=== PATIENT | female | born 1965 | race Caucasian/White ===

== ENCOUNTER 2019-11-27 15:28 | Observation (INO) | payer OTHER ==
[~2019-11-27] VITALS: Ht 160 cm; Wt 81.6 kg
[2019-11-27] MEDS ORDERED: SODIUM CHLORIDE 0.9% 1000ML 1,000 ML IV STA (15:46)
[2019-11-27] MEDS ORDERED: KETOROLAC TROMETHAMINE 30 MG/ML VIAL IV STA (15:46)
[2019-11-27] MEDS ORDERED: MECLIZINE HCL 12.5 MG TAB PO ONE (16:00)
[2019-11-27] MEDS ORDERED: DIPHENHYDRAMINE HCL INJ 50 MG/ML VIAL IV NR (16:00)
[2019-11-27] MEDS ORDERED: KETOROLAC TROMETHAMINE 30 MG/ML VIAL ONE (16:04)
[2019-11-27] MEDS ORDERED: MECLIZINE HCL 12.5 MG TAB ONE (16:04)
[2019-11-27] MEDS ORDERED: DIPHENHYDRAMINE HCL INJ 50 MG/ML VIAL ONE (16:04)
--- NOTE | 2019-11-27 18:02 | Emergency Department Note ---
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 Dizziness described as the world spinning, occurs with minor head movements Historian: Patient Arrival Mode: Car Track Repairer Required: No Onset (how long ago): day(s) (5) Location: head Quality: pain Radiation: Reports non-radiation Severity: moderate Onset quality: gradual Timing of current episode: intermittent Progression: waxing and waning Chronicity: new Context: Denies recent illness Relieving factors: none Exacerbating factors: none Associated symptoms: Reports denies other symptoms Treatments prior to arrival: none (MASON LAW MD) Past Medical/Family History Physician Review I have reviewed the patient's past medical and family history. Any updates have been documented here. (MASON LAW MD) Past Medical History Recent Fever: No Clinical Suspicion of Infectio: No New/Unexplained Change in Ment: No Past Medical History: Asthma, Migraines Other Medical History: SINUS BRONCHITIS Past Surgical History: Hysterectomy (MASON LAW MD) Social History Smoking Cessation: Never Smoker Counseling Performed: No Alcohol Use: Social Any Illegal Drug Use: No TB Exposure/Symptoms: No Physically hurt or threatened: No (MASON LAW MD) Review of Systems Review of Systems Constitutional: Reports no symptoms EENTM: Reports no symptoms Cardiovascular: Reports no symptoms Respiratory: Reports no symptoms Gastrointestinal: Reports no symptoms Genitourinary: Reports no symptoms Musculoskeletal: Reports no symptoms Integumentary: Reports no symptoms Neurological: Reports as per HPI Psychological: Reports no symptoms Endocrine: Reports no symptoms Hematological/Lymphatic: Reports no symptoms (MASON LAW MD) Physical Exam Related Data Allergies: Uncoded Allergies: ALL NARCOTICS (Adverse Reaction, Unknown, NAUSEA/VOMITING, 11/27/19) Triage Vital Signs Vital Signs Date Time Temp Pulse Resp B/P (MAP) Pulse Ox O2 Delivery O2 Flow Rate FiO2 11/27/19 15:33 97.5 117 18 139/96 100 Room Air Vital signs reviewed: Yes (MASON LAW MD) Physical Exam CONSTITUTIONAL Constitutional: Present well-developed, Present well-nourished HENT HENT: Present normocephalic, Present atraumatic, Present oropharynx clear/moist, Present nose normal HENT L/R: Present left TM normal, Present right TM normal, Present left canal normal, Present right canal normal, Present left ext ear normal, Present right ext ear normal EYES Eyes: Reports PERRL, Reports conjunctivae normal NECK Neck: Present ROM normal PULMONARY Pulmonary: Present effort normal, Present breath sounds normal CARDIOVASCULAR Cardiovascular: Present regular rhythm, Present heart sounds normal, Present capillary refill normal, Present normal rate GASTROINTESTINAL Abdominal: Present soft, Present nontender, Present bowel sounds normal GENITOURINARY Genitourinary: Present exam deferred SKIN Skin: Present warm, Present dry MUSCULOSKELETAL Musculoskeletal: Present ROM normal NEUROLOGICAL Neurological: Present alert, Present oriented x 3, Present no gross motor or sensory deficits PSYCHOLOGICAL Psychological: Present mood/affect normal, Present judgement normal (MASON LAW MD) Results Laboratory Lab results reviewed: Yes (GREY WORTHY DO) Imaging Imaging results reviewed: Yes (MASON LAW MD) Imaging results reviewed: Yes (GREY WORTHY DO) Assessment & Plan Medical Decision Making MDM check CT brain r/o cerebral bleed/cva (MASON LAW MD) MDM 54-year-old female arrived to the ED with complaints of a headache, CT findings concerning for demyelinating versus subcortical infarct. Case discussed with Dr. Mejia from neurology who accepted consultation. Patient except the general medical floor, although vasculitis labwork ordered at Dr. lujan recommendation. Patient stable with no neuro deficits at time of admission. (GREY WORTHY DO) Reassessment Reassessment REPORT TO DR WORTHY TO F/U CT BRAIN (MASON LAW MD) Assessment & Plan Final Impression: (1) Vertigo (2) Headache (3) CVA (cerebral vascular accident) (MASON LAW MD) Final Impression: (1) Headache (2) Vertigo (3) CVA (cerebral vascular accident) (4) Subcortical infarction (GREY WORTHY DO) Depart Disposition: ADMITTED Last Vital Signs Date Time Temp Pulse Resp B/P (MAP) Pulse Ox O2 Delivery O2 Flow Rate FiO2 11/27/19 15:33 97.5 117 18 139/96 100 Room Air (MASON LAW MD) Medications in the ED Ketorolac Tromethamine 30 mg ONCE STAT IV Last administered on 11/27/19at 16:03; Admin Dose 30 MG; Start 11/27/19 at 15:46; Stop 11/27/19 at 15:58; Status DC Sodium Chloride 1,000 ml @ 0 mls/hr Q0M STAT IV Last administered on 11/27/19at 16:03; Admin Dose 999 MLS/HR; Start 11/27/19 at 15:46; Stop 11/27/19 at 15:47; Status DC Diphenhydramine HCl 25 mg NOW IV Last administered on 11/27/19at 16:03; Admin Dose 25 MG; Start 11/27/19 at 16:00; Stop 11/27/19 at 16:59; Status DC Meclizine HCl 25 mg ONCE ONCE PO Last administered on 11/27/19at 16:03; Admin Dose 25 MG; Start 11/27/19 at 16:00; Stop 11/27/19 at 16:01; Status DC Meclizine HCl 12.5 mg STK-MED ONCE .ROUTE ; Start 11/27/19 at 16:04; Stop 11/27/19 at 15:59; Status DC Ketorolac Tromethamine 30 mg STK-MED ONCE .ROUTE ; Start 11/27/19 at 16:04; Stop 11/27/19 at 15:59; Status DC Diphenhydramine HCl 50 mg STK-MED ONCE .ROUTE ; Start 11/27/19 at 16:04; Stop 11/27/19 at 15:59; Status DC (MASON LAW MD) MASON LAW MD Nov 27, 2019 18:02 GREY WORTHY DO Nov 27, 2019 21:20
--- NOTE | 2019-11-27 18:28 | Diagnostic Imaging Report ---
Examination: CT BRAIN WO CONTRAST History:Dizziness; headaches. Comparison studies:None Technique: Axial images were obtained from the skull base to the vertex. Coronal and sagittal images reconstructed from the axial data. Dose modulation, iterative reconstruction, and/or weight based adjustment of the mA/kV was utilized to reduce the radiation dose to as low as reasonably achievable. Intravenous contrast: None Findings: Scalp: No abnormalities. Bones: No fractures, blastic or lytic lesions. Brain sulci: Appropriate for age. Ventricles: Normal in size and configuration. No hydrocephalus. Extra-axial space: No abnormalities. Parenchyma: Subcortical vague hypoattenuation of the left superior frontal gyrus, nonspecific. No masses, hemorrhage, or acute or chronic cortical based vascular insults.. Sellar/suprasellar region: No abnormalities. Craniocervical junction: Patent foramen magnum. No Chiari one malformation. Incidental findings: None. Impression: Vague hypoattenuation in the left superior frontal gyrus, which could be from many etiology including acute subcortical infarct, demyelinating disease or chronic microvascular ischemic change. Further evaluation with contrast enhanced brain MRI is recommended. No acute intracranial hemorrhage or acute cortical infarct. Signed by: Dr. Keira Chi M.D. on 11/27/2019 6:25 PM
[2019-11-27 21:50] LABS: BASOPHILS # (AUTO) 0.1 (0.0-0.1); BASOPHILS % 0.7 % (0.0-1.0); EOSINOPHILS # (AUTO) 0.2 (0.0-0.4); HEMATOCRIT 43.8 % (34.2-44.1); HEMOGLOBIN 14.2 g/dL (12.0-16.0); LYMPHOCYTES # (AUTO) 2.7 (1.0-3.2); LYMPHOCYTES % 32.5 % (18.0-39.1); MEAN CORPUSCULAR HEMOGLOBIN 28.2 pg (28-32); MEAN CORPUSCULAR HGB CONC 32.4 g/dL (31-35); MEAN CORPUSCULAR VOLUME 87.1 fL (81-99); MONOCYTES # (AUTO) 0.4 (0.2-0.8); MONOCYTES % 5.4 % (4.4-11.3); NEUTROPHILS # (AUTO) 4.8 (2.1-6.9); PLATELET COUNT 245 x10e3/uL (140-360); RED BLOOD COUNT 5.03 x10e6/uL (3.6-5.1); RED CELL DISTRIBUTION WIDTH 13.3 % (11.7-14.4)
[2019-11-27 22:09] LABS: CALCIUM 9.8 mg/dL (8.4-10.2); CHLORIDE 108 mmol/L (98-107); POTASSIUM 3.8 mmol/L (3.5-5.1); SODIUM 137 mmol/L (136-145)
[2019-11-27 22:26] VITALS: BP 112/60
[2019-11-27 22:41] LABS: ALANINE AMINOTRANSFERASE 36 IU/L (0-55); ALBUMIN 4.1 g/dL (3.5-5.0); ALBUMIN/GLOBULIN RATIO 1.4 (0.8-2.0); ALKALINE PHOSPHATASE 135 IU/L (40-150); BLOOD UREA NITROGEN 12 mg/dL (7-26); BUN/CREATININE RATIO 12 (6-25); CARBON DIOXIDE 20 mmol/L (22-29); CREATINE KINASE 59 IU/L (29-168); EST GLOMERULAR FILTRATION RATE 58 ML/MIN (60-); GLUCOSE 94 mg/dL (74-118)
[2019-11-27 22:42] LABS: ANION GAP 12.8 mmol/L (8-16)
[2019-11-27 23:00] VITALS: BP 148/84
[2019-11-28] VITALS (7 sets, daily range): BP systolic 111–115; BP diastolic 54–73
[2019-11-28 06:46] LABS: BASOPHILS % 0.6 % (0.0-1.0); EOSINOPHILS # (AUTO) 0.2 (0.0-0.4); EOSINOPHILS % 3.2 % (0.0-6.0); HEMATOCRIT 42.2 % (34.2-44.1); HEMOGLOBIN 13.8 g/dL (12.0-16.0); LYMPHOCYTES # (AUTO) 2.1 (1.0-3.2); LYMPHOCYTES % 30.9 % (18.0-39.1); MEAN CORPUSCULAR HEMOGLOBIN 29.4 pg (28-32); MEAN CORPUSCULAR HGB CONC 32.7 g/dL (31-35); MEAN CORPUSCULAR VOLUME 89.8 fL (81-99); MONOCYTES # (AUTO) 0.6 (0.2-0.8); MONOCYTES % 8.4 % (4.4-11.3); NEUTROPHILS # (AUTO) 3.8 (2.1-6.9); NEUTROPHILS % 56.6 % (38.7-80.0); PLATELET COUNT 193 x10e3/uL (140-360); RED CELL DISTRIBUTION WIDTH 13.5 % (11.7-14.4)
[2019-11-28 07:24] LABS: ALANINE AMINOTRANSFERASE 33 IU/L (0-55); ALBUMIN 3.9 g/dL (3.5-5.0); ALBUMIN/GLOBULIN RATIO 1.4 (0.8-2.0); ALKALINE PHOSPHATASE 130 IU/L (40-150); ANION GAP 12.2 mmol/L (8-16); BLOOD UREA NITROGEN 11 mg/dL (7-26); BUN/CREATININE RATIO 12 (6-25); CALCIUM 9.6 mg/dL (8.4-10.2); CARBON DIOXIDE 24 mmol/L (22-29); CHLORIDE 109 mmol/L (98-107); EST GLOMERULAR FILTRATION RATE > 60 ML/MIN (60-); GLUCOSE 91 mg/dL (74-118); POTASSIUM 4.2 mmol/L (3.5-5.1); SODIUM 141 mmol/L (136-145)
[2019-11-28] MEDS ORDERED: GADOBENATE DIMEGLUMINE 1 ML IV ONE (10:36)
[2019-11-28] MEDS ORDERED: METHYLPREDNISOLONE SOD SUCC 125 MG/2ML VIAL IV SCH (11:30)
--- NOTE | 2019-11-28 12:17 | Diagnostic Imaging Report ---
History: Headache,? Infarct. Comparison studies: Head CT 11/27/2019. Technique: Sagittal and axial T2, axial DWI, T2*GRE, axial precontrast T1 and axial T2 FLAIR. Postcontrast sagittal, axial coronal T1 FS. Intravenous contrast: 17 cc of MultiHance. Findings: Scalp: No abnormal signal. No masses. Bone marrow: Normal in signal intensity. Brain sulci: Appropriate for age. Ventricles: Normal in size . No hydrocephalus. Parenchyma: Focal 10 mm T2 hyperintensity in the left superior frontal subcortical white matter is nonspecific and may reflect gliosis secondary to chronic microvascular ischemic changes or other nonspecific insult. No mass, hemorrhage, abnormal restricted diffusion or enhancing abnormality. Incidental prominent perivascular spaces throughout the cerebral white matter are present, are nonspecific and are of indeterminate clinical significance. Suprasellar region: No abnormalities. Craniocervical junction: Patent foramen magnum. No Chiari one malformation. Vessels: Normal flow-voids in the arteries and sinuses. IMPRESSION: 1. No acute infarct or other acute intracranial abnormalities. 2. Nonspecific left superior frontal subcortical insult which correlates with the abnormality described on the recent head CT of 11/27/2019. Signed by: Dr. Spencer Camilo M.D. on 11/28/2019 12:13 PM
[2019-11-28] MEDS ORDERED: MECLIZINE HCL 12.5 MG TAB PO PRN (13:00)
[2019-11-28] MEDS ORDERED: MELATONIN 5 MG TABLET PO PRN (13:00)
[2019-11-28] MEDS ORDERED: ONDANSETRON HCL INJ 2MG/ML 2ML 2 MG/ML VIAL IV PRN (13:00)
[2019-11-28] MEDS ORDERED: KETOROLAC TROMETHAMINE 30 MG/ML VIAL IV PRN (13:00)
[2019-11-28] MEDS ORDERED: ACETAMINOPHEN 325 MG TAB PO PRN (13:00)
--- NOTE | 2019-11-28 14:23 | Consultation ---
DATE OF CONSULTATION: Neurology Consultation. HISTORY OF PRESENT ILLNESS: Ms. Ponce started having symptoms on November 04. She woke up suddenly dizzy and vertiginous that lasted a few minutes and then resolved and then it happened pretty much nocturnally until November 21 where she was persistently and constantly dizzy without complete resolution. She feels she has to move slowly because otherwise she gets more discombobulated, but physically disoriented in space rather than confusion. She does report that she has some memory issues, may be; although, she is not entirely clear about that. She really has not affected her work thus far, but the symptoms has been getting worse where she has been increasingly concerned about it. She comes in to emergency for further evaluation. The CT scan of the brain showed nothing entirely clear; however, of the left superior frontal gyri, but it was not entirely clear to see, an MRI with contrast was recommended and that is pending. She denies tobacco or drugs. She occasionally drinks alcohol, but not substantially. No head traumas. No exposures to anything as per her reports. REVIEW OF SYSTEMS: She does report dizziness. Feels congestion, but otherwise 14-point review of systems is negative. No sensory changes or abnormalities. No seizures. Denies migraines. Denies extraocular muscle abnormalities, visual disturbances, auditory disturbances or hallucinations. Denies chest pain, nausea, vomiting, ataxia, clumsiness. She denies easy bruising or easy bleeding. Denies discharges . Denies diarrhea or constipation. A 14-point review of systems otherwise negative. PHYSICAL EXAMINATION: GENERAL: VITAL SIGNS: Temperature of 97.8, pulse of 92, blood pressure 111/54. Medically, she is a pretty healthy. She does not take any medications for anything. She does not tolerate narcotics. She has been taking diphenhydramine and meclizine for the dizziness and the symptoms that she felt most potentially allergic. GENERAL: Awake, alert, oriented x3 female. Extraocular muscles intact. Face symmetric. Tongue is midline. Speech is clear. There is no nuchal rigidity. CARDIOVASCULAR: Regular rate and rhythm without bruits. PULMONARY: Clear to auscultation. ABDOMEN: Soft, nontender with no distention. NEURO: Speech is clear. She has no aphasia. She is responsive. Her strength is 5/5 and reflexes 2/4. She is little bit slow, bradykinetic, but no ataxia noted. No dysmetria is noted. No dysdiadochokinesia is noted. CHEST: Grossly intact. EXTREMITIES: Toes downgoing to plantar stimulation. ASSESSMENT AND PLAN: The patient comes in with dizziness that seems to be worsening the frontal gyrus abnormality, which is questionable on CT scan, but does require MRI to evaluate. Lab work has been sent out to evaluate for vasculitis. Evaluation for stroke in progress and then EEG will be done. NATALI MARQUEZ MD RR/MODL /[id number]
[2019-11-28] MEDS ORDERED: SCOPOLAMINE 1.5 MG PATCH TOP SCH (15:00)
--- NOTE | 2019-11-28 19:30 | History and Physical ---
CHIEF COMPLAINT: Vertigo, dizziness. HISTORY OF PRESENT ILLNESS: A 54-year-old female, came into the ED with complaints of underlying dizziness, ongoing for the last several weeks. The patient reports that she noticed it back in November 04, when she woke up and suddenly became very dizzy. Since that time, she had episodically which she will have dizziness at rest and dizziness upon movement. Then, she noticed since November 21, she had continuous dizziness with movement. The patient denies any cough, congestion, or any fever. The patient went to the [facility] yesterday, told to come to the ER for further evaluation and management. The patient was seen and evaluated at bedside on the medical floor, currently doing well with no other issues at this time. Vital signs are stable to my evaluation. She denies any chest pain. Does report having a history of sinusitis and allergies, which could be playing a role to her underlying dizziness. REVIEW OF SYSTEMS: Pertinent positive: Dizziness, vertigo. The rest of 14-point review of systems are reviewed with the patient and are negative. ALLERGIES: SHE IS ALLERGIC TO NARCOTICS. HOME MEDICATIONS: None. PAST MEDICAL HISTORY: Reviewed. PAST SURGICAL HISTORY: None. FAMILY HISTORY: Hypertension, diabetes. SOCIAL HISTORY: No drugs, no alcohol. Does not smoke. Good social support. PHYSICAL EXAMINATION: VITAL SIGNS: Temperature is 97.0, pulse 60, respiratory rate is 20, blood pressure is 112/58, and pulse ox 97% on room air. GENERAL: Not in acute distress. Alert and oriented x3. Cooperative on examination. HEENT: Head is normocephalic, atraumatic. Eyes; pupils are equal and reactive to light bilaterally. PULMONARY: Clear to auscultation bilaterally. No wheezing, rales, or rhonchi. No crackles appreciated. CARDIOVASCULAR: Positive S1, S2. No murmurs, rubs, or gallops. ABDOMEN: Soft, nondistended, nontender to palpation. Bowel sounds present. MUSCULOSKELETAL: Strength is 5/5 throughout. No evidence of any muscle deficits on examination. No weakness appreciated. NEUROLOGIC: Cranial nerves II through XII are grossly intact. No evidence of any neurological deficits on exam. SKIN: Intact. Warm to touch. Good cap refill. PSYCHIATRIC: Normal affect and mood. EXTREMITIES: No edema. Good range of motion throughout. LABORATORY DATA: White count 6, hemoglobin 13, hematocrit is 42, and platelets of 193. Coagulation results pending. Chemistry; sodium 141, potassium 4.2, chloride 109, bicarb 24, anion gap of 12, BUN 11, creatinine 0.9, glucose 91, calcium 9.6. LFTs were normal. Troponins are negative. CK 59. Albumin 3.9. Immunology, serologies are pending. Coronavirus is pending. IMAGING STUDIES: CT brain, vague hypoattenuation in the left superior frontal gyrus which could be from many etiologies including acute cortical infarct, demyelinating disease, or chronic microvascular ischemic changes. No acute intracranial hemorrhage or acute cortical insult. MRI of the brain with and without contrast shows no acute infarct or other acute intracranial abnormalities. Nonspecific left superior frontal subcortical insult with results, which correlates with abnormalities described on recent CT brain. IMPRESSION: 1. Benign positional peripheral vertigo. 2. Dizziness with associated nausea. PLAN: At this time, CT brain found to be nothing acute was found. 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 We will put scopolamine patch, meclizine p.r.n. Restart home medications. Lovenox for DVT prophylaxis. Steroids have been given already per Neurology. Follow Neurology recommendations. If all her imaging come back to be negative, the patient will likely need an inner ear workup by ENT as an outpatient. Otherwise, we will continue same plan of care and monitor very closely. I will go ahead and get a carotid ultrasound as well as a 2D echo to complete our workup as well. I discussed the plan of care with the patient and nursing staff. MD DIAN Mitchell/MODL /[id number]
--- NOTE | 2019-11-28 23:00 | NUR ---
patient arrived from ER, offered a bed and fall precaution maintained Addendum: 11/29/19 at 0737 by Chuck Almonte RN wrong entry
[2019-11-29] VITALS: BP 108/59
[2019-11-29 04:00] VITALS: BP 94/61
[2019-11-29 05:56] LABS: BASOPHILS % 0.1 % (0.0-1.0); HEMATOCRIT 42.3 % (34.2-44.1); HEMOGLOBIN 13.7 g/dL (12.0-16.0); LYMPHOCYTES # (AUTO) 1.1 (1.0-3.2); LYMPHOCYTES % 9.8 % (18.0-39.1); MEAN CORPUSCULAR HEMOGLOBIN 28.2 pg (28-32); MEAN CORPUSCULAR HGB CONC 32.4 g/dL (31-35); MONOCYTES # (AUTO) 0.3 (0.2-0.8); MONOCYTES % 2.9 % (4.4-11.3); NEUTROPHILS # (AUTO) 9.6 (2.1-6.9); NEUTROPHILS % 86.7 % (38.7-80.0); PLATELET COUNT 254 x10e3/uL (140-360); RED BLOOD COUNT 4.86 x10e6/uL (3.6-5.1)
[2019-11-29 06:19] LABS: ANION GAP 13.8 mmol/L (8-16); BLOOD UREA NITROGEN 15 mg/dL (7-26); BUN/CREATININE RATIO 19 (6-25); CALCIUM 9.7 mg/dL (8.4-10.2); CARBON DIOXIDE 23 mmol/L (22-29); CHLORIDE 109 mmol/L (98-107); CREATININE, SERUM 0.78 mg/dL (0.57-1.11); EST GLOMERULAR FILTRATION RATE > 60 ML/MIN (60-); GLUCOSE 128 mg/dL (74-118); POTASSIUM 4.8 mmol/L (3.5-5.1); SODIUM 141 mmol/L (136-145)
--- NOTE | 2019-11-29 07:32 | NUR ---
patient endorsed to next shift for continuity of care.
[2019-11-29 07:56] VITALS: BP 94/61
[2019-11-29 08:00] VITALS: BP 121/68
--- NOTE | 2019-11-29 09:26 | NUR ---
still mildy dizzy 97.7 101 105/59 cta tachycardic no nuchal rigidity no rashes or lesions on skin aox3, speech coherent and fluent no scanning or stutter eomi perrl no ptosis face symmetric gait is more confident but still mildy bradykinetic strength 5/5 reflexes 1/4 toes downgoing no ataxia or tremor a/p perivepheral vertigo on meclazine- outpt ent follow up [employer] lesion - no disruption of BBB, no enhacnement on ADC or B1000 no evidence of acute injury, no space occupying qualities. no evidence of vasculitis, encephalitis, meningitis, tumor, or stroke.possibly old [employer] contusion vs congenital finding? repeat scan in 1 year or if symptoms change, monitor clinically, can dc steroids and outpt follow up in vasculitic labs, however no evidence ofCNS vasculitis, it is likely an incidnetal finding of chornic nature discused w/ pt and showed her imaging explained all findings. ok to dc
[2019-11-29 12:00] VITALS: BP 103/54
--- NOTE | 2019-11-29 14:45 | NUR ---
Discharge instructions and prescription were given to the patient. She verbalized understanding. IV to the left ac was removed with tip intact.
--- NOTE | 2019-11-29 21:16 | Discharge Summary ---
FINAL DISCHARGE DIAGNOSES: 1. Benign peripheral positional vertigo. 2. Nausea secondary to benign peripheral positional vertigo-resolved. CONSULTANTS: Neurology. VITAL SIGNS: Temperature is 98.1, pulse 78, respiratory rate is 20, blood pressure 121/68, pulse ox 98% on room air. LABORATORY FINDINGS: Show white count 11, hemoglobin is 13, hematocrit is 42, and platelets of 254. Coagulation and several serologies are pending. Chemistry; sodium 141, potassium 4.8, chloride 109, bicarb 27, anion gap of 13, BUN is 15, creatinine is 0.78, glucose is 128, A1c 5.3, calcium is 9.7. Troponins were negative. Albumin 3.9. TSH is 4.69. Coronavirus is pending. IMAGING STUDIES: CT of the brain shows us a vague hypoattenuation in the left superior frontal gyrus, which could be from many etiologies. MRI of the brain, no acute infarct or other acute intracranial abnormality. Nonspecific left superior frontal subcortical insult, which correlates with the abnormality described in the recent head CT on 11/27/2019. A 2D echo shows an EF of 55% to 60%. Carotid ultrasound shows no evidence of any stenosis bilaterally. HOSPITAL COURSE: A 54-year-old female, who came into the ED with complaints of underlying dizziness, ongoing for several days prior to arrival to the hospital. The patient was admitted and Neurology was consulted. MRI of the brain, CT of the brain with results above showed no acute findings. A 2D echo was found to be normal. Carotid ultrasound was found to be normal. The patient was given steroids for her underlying dizziness. She was given meclizine as well as scopolamine. The patient improved throughout the hospital course. Her dizziness resolved. Neurology reviewed the imaging studies with the patient and advised her to come back in his office in 2 to 3 weeks' time. There is also several serologies that are still pending and that she must follow up with the neurologist as an outpatient to get the final results. They are still pending at this time and the patient verbalized understanding. On the day of discharge, vital signs were stable, labs reviewed and stable. The patient is seen and evaluated and examined thoroughly on the day of discharge with no other complaints. The patient verbalized understanding and agrees to plan of care to follow up accordingly as an outpatient with primary care physician in 1 week and the neurologist in 2 to 3 weeks' time. MEDICATIONS: See med reconciliation form. DISPOSITION: Home. CONDITION: Stable. DIET: Heart healthy. In the event of any worsening symptoms, the patient was advised to come back to the ED for further evaluation. Discharge summary took greater than 35 minutes. MD DIAN Mitchell/GREG /[id number]
--- NOTE | 2019-11-30 13:28 | Electroencephalogram ---
DATE OF STUDY: REQUESTING PHYSICIAN: PROCEDURE: 30 minutes EEG. INDICATIONS FOR THE PROCEDURE: EEG is being done to evaluate for seizure activity. EEG DATA: Posterior dominant rhythm is 10 hertz . This is a 10-20 international electrode placement system. EEG INTERPRETATION: This EEG is largely within normal limits. No underlying evidence of epilepsy . MD STEPHENIE FRANZ/GREG /[id number]
== END 2019-11-29 15:01 | disposition home or self-care (01) ==
LOC: ER 15:56 → ERHOLD 22:22 → INTOOBSV 22:22 → MED/SURG2 22:49
PROVIDERS: ADMIT Internal Medicine; ATTEND Internal Medicine
DX: H81.10 Benign paroxysmal vertigo, unspecified ear (principal); Z11.59 Encounter for screening for other viral diseases
CPT/HCPCS: 36415 ×3; 70450; 70553; 80048; 80053 ×2; 82550; 82553; 82585; 83036; 83516 ×2; 84443; 84484 ×2; 85025 ×3; 85597; 85613; 85651 ×2; 85730; 86021; 86039; 86140; 86160 ×2; 86225; 86235 ×3; 86255; 86256; 86376; 87635; 92523; 93005; 93306; 93880; 95812; 96365; 97161; 99284; A9577; G0378 ×3; J1200; J1885 ×2; J2930; J7030; J8597 ×2; U0002